=== PATIENT | female | born 1995 | race African-American/Black ===

== ENCOUNTER 2016-12-08 18:05 | Emergency (ER) | payer MEDICAID, OTHER ==
[~2016-12-08] VITALS: Ht 177.8 cm; Wt 58.0 kg
[2016-12-08 18:34] VITALS: BP 133/95
== END 2016-12-08 21:40 | disposition left against medical advice (07) ==
LOC: ER 21:26
DX: J02.9 Acute pharyngitis, unspecified (principal); Z53.21 Procedure and treatment not carried out due to patient leaving prior to being seen by health care provider